=== PATIENT | female | born 1985 | race Caucasian/White ===

== ENCOUNTER 2017-03-08 08:07 | Emergency (ER) | payer MEDICAID ==
[~2017-03-08] VITALS: Ht 157.5 cm; Wt 56.0 kg
[~2017-03-08 08:07] MED LIST: PREN-39 PO
[2017-03-08 08:11] VITALS: Ht 157.5 cm; Wt 56.0 kg
[2017-03-08 08:40] LABS: URINE BLOOD (Dip) POC Trace-lysed (NEGATIVE)
[2017-03-08] MEDS ORDERED: FLUC150T17 PO ×2 (08:44→08:50)
[2017-03-08] MEDS ORDERED: CEPH-443 PO (08:50)
--- NOTE | 2017-03-08 08:53 | ERD ---
ER Documentation Chief Complaint Date/Time DATE: 03/08/17 TIME: 08:51 Chief Complaint dysuria x 3 days, and vaginal swelling/itchyness HPI 31-year-old female otherwise healthy comes emergency department with painful urination over the last 3 days, she also states that she has had exterior vaginal itching. She reports a white discharge that is thick, however she has no pelvic pain. She reports that she is sexually active, however does not have any concern for sexually transmitted diseases. She has not had any fever. Denies abdominal pain ROS All systems reviewed and are negative except as per history of present illness. Medications Home Meds Active Scripts Fluconazole* (Diflucan*) 150 Mg Tablet, 150 MG PO ONCE, #2 TAB Prov:EILEEN MESSER PA-C 03/08/17 Cephalexin* (Keflex*) 500 Mg Capsule, 500 MG PO TID for 7 Days, CAP Prov:EILEEN MESSER PA-C 03/08/17 Reported Medications Vits W-Ca,Fe,Fa(<1MG) ( Vitamins) 1 Tab Tablet, 1 TAB PO DAILY 07/29/13 Allergies Allergies: Coded Allergies: No Known Allergies (Verified Allergy, 07/29/13) PMhx/Soc History of Surgery: No Anesthesia Reaction: No Hx Neurological Disorder: No Hx Respiratory Disorders: No Hx Cardiac Disorders: No Hx Psychiatric Problems: No Hx Miscellaneous Medical Probl: No Hx Alcohol Use: No Hx Substance Use: No Hx Tobacco Use: No Physical Exam Vitals Vital Signs Date Time Temp Pulse Resp B/P Pulse Ox O2 Delivery O2 Flow Rate FiO2 03/08/17 08:11 98.0 95 18 152/100 100 Physical Exam General: Well-developed, well-nourished. The patient appears in no acute distress. HEENT: Head is normocephalic, atraumatic. No scleral icterus. Neck: Supple. Nontender. Lungs: Clear to auscultation. Normal air movement. Heart: Regular rate and rhythm. S1 and S2 are normal. No murmurs, gallops, or rubs. Abdomen: Soft, nontender, nondistended. Bowel sounds are normoactive. : white vaginal discharge that appears to be yeast like, no masses Extremities: No clubbing or cyanosis. Normal pulses. Moving extremities x 4. No weakness. Neurologic: Alert and oriented 3. No focal deficits. Skin: Normal turgor. No rash or lesions. Results 24 hrs Laboratory Tests Test 03/08/17 08:42 Bedside Urine pH (LAB) 6.5 Bedside Urine Protein (LAB) Negative Bedside Urine Glucose (UA) Negative Bedside Urine Ketones (LAB) Negative Bedside Urine Blood Trace-lysed Bedside Urine Nitrite (LAB) Negative Bedside Urine Leukocyte Esterase (L 2+ Procedures/MDM MDM: 31-year-old female comes emergency department with a yeast vaginitis, patient also presents with 2+ leukocyte esterase and burning with urination will be treated for a urinary tract infection. She will be given Diflucan for 2 days worth as well. At this time I do not see signs of PID or cervicitis, pyelonephritis, acute appendicitis. Departure Diagnosis: Primary Impression: Vaginitis Additional Impression: UTI (urinary tract infection) Condition: Good Patient Instructions: Understanding Urinary Tract Infections (UTIs), Vaginal Infection: Yeast (Candidiasis) EILEEN MESSER PA-C March 08, 2017 08:53
[2017-03-08 08:59] VITALS: RESP 18
== END 2017-03-08 09:12 | disposition home or self-care (01) ==
LOC: FTE 08:07
DX: N76.0 Acute vaginitis (principal); N39.0 Urinary tract infection, site not specified
CPT/HCPCS: 81003; Z7502; 99284